=== PATIENT | male | born 1965 | race Caucasian/White ===

== ENCOUNTER → 2016-07-26 | Day surgery (SDC) | payer OTHER ==
[~2016-07-26] MED LIST: BUPIVACAINE/EPINEPHRINE 0.25% PF 30 ML VIAL ONE; KETOROLAC TROMETHAMINE 30 MG/ML (IVP) VIAL IV PUSH ONE; LACTATED RINGER'S 1000 ML INJ 1,000 ML ONE; MEPERIDINE HCL 50 MG/ML VIAL ONE; MIDAZOLAM HCL 2 MG/2 ML VIAL ONE; ONDANSETRON HCL 4 MG/2 ML VIAL IV PUSH ONE; PROPOFOL 200 MG/20 ML AMP IV ONE; ceFAZolin 2 GM PREMIX 50 ML ONE
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
== END | disposition home or self-care (01) ==
LOC: ESDC 11:30
PROVIDERS: ATTEND Surgery Trauma Surgery
DX: K40.90 Unilateral inguinal hernia, without obstruction or gangrene, not specified as recurrent (principal); K42.9 Umbilical hernia without obstruction or gangrene
CPT/HCPCS: 00750; 00840; 49585; 49650; C1727; C1781; J0690; J1885; J2175; J2250; J2405; J3010; J7120